=== PATIENT | male | born 1990 | race African-American/Black ===

== ENCOUNTER 2017-06-09 17:33 | Emergency (ER) | payer SELFPAY ==
[~2017-06-09] VITALS: Ht 170.2 cm; Wt 70.0 kg
[2017-06-09 17:57] VITALS: BP 127/77; PULSE 79; RESP 18; TEMP 98.7; O2SAT 97
--- NOTE | 2017-06-09 17:57 | PD ---
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 Allergies-Medications (Allergen,Severity, Reaction): Coded Allergies: No Known Allergies (Unverified , 06/09/17) Reported Meds & Prescriptions Reported Meds & Active Scripts Active No Active Prescriptions or Reported Medications Review of Systems Neurologic: Positive: Other (slow to respond, speak and move after blunt head trauma during football practice) Physical Exam Narrative GENERAL: SKIN: Warm and dry. HEAD: Atraumatic. Normocephalic. EYES: Pupils equal and round. No scleral icterus. No injection or drainage. ENT: No nasal bleeding or discharge. Mucous membranes pink and moist. NECK: Trachea midline. No JVD. ccollar in place CARDIOVASCULAR: Regular rate and rhythm. RESPIRATORY: No accessory muscle use. Clear to auscultation. Breath sounds equal bilaterally. GASTROINTESTINAL: Abdomen soft, non-tender, nondistended. Hepatic and splenic margins not palpable. MUSCULOSKELETAL: Extremities without clubbing, cyanosis, or edema. No obvious deformities. NEUROLOGICAL: Awake and alert....gcs 15/15....(however unable to recall 3 out 5 words, and unable to count backwards by 3's or 7's). Motor grossly within normal limits. Five out of 5 muscle strength in the arms and legs. Normal speech. PSYCHIATRIC: Appropriate mood and affect; insight and judgment normal. Data Data Last Documented VS Vital Signs Date Time Temp Pulse Resp B/P (MAP) Pulse Ox O2 Delivery O2 Flow Rate FiO2 06/09/17 17:57 98.7 79 18 127/77 (94) [address] Brain W/O Iv Contrast(Rout) (06/09/17 17:51) Ct Cerv Spine W/O Contrast (06/09/17 17:51) MDM Medical Decision Making Medical Screen Exam Complete: Yes Emergency Medical Condition: Yes Medical Record Reviewed: Yes Differential Diagnosis ICH V SKULL FX V NECK INJURY V CONCUSSION Narrative Course CT HEAD NEG FOR ICH/SKULL FX AND CT NECK NEG FOR FX/DISLOCATION Diagnosis Primary Impression: Concussion Qualified Codes: S06.0X1A - Concussion with loss of consciousness of 30 minutes or less, initial encounter Patient Instructions: Concussion (ED), General Instructions, Post Concussion Syndrome (ED) Additional Instructions: YOU CAN TAKE TYLENOL FOR HEADACHES, AVOID ALLEVE/MOTRIN/NAPROSYN FOR NOW. PLEASE FOLLOW YOUR TEAM'S CONCUSSION PROTOCOL ON RETURN TO ACTIVITY Scripts Ondansetron Odt (Zofran Odt) 4 Mg Tab 4 MG SL Q6HR Y for Nausea/Vomiting, #30 TAB 0 Refills Prov: Han Ospina MD 06/09/17 Disposition: 01 DISCHARGE HOME Condition: Stable Han Ospina MD Jun 09, 2017 17:57
--- NOTE | 2017-06-09 18:17 | RADRPT ---
EXAM DATE/TIME: 06/09/2017 17:56 [facility] COMPARISON: No previous studies available for comparison. INDICATIONS : Blunt head trauma playing football. Confusion. RADIATION DOSE: 56.35 CTDIvol (mGy) MEDICAL HISTORY : None SURGICAL HISTORY : None. ENCOUNTER: Initial ACUITY: 1 day PAIN SCALE: 0/10 LOCATION: cranial TECHNIQUE: Multiple contiguous axial images were obtained of the head. Using automated exposure control and adj ustment of the mA and/or kV according to patient size, radiation dose was kept as low as reasonably a chievable to obtain optimal diagnostic quality images. DICOM format image data is available electro nically for review and comparison. FINDINGS: CEREBRUM: The ventricles are normal for age. No evidence of midline shift, mass lesion, hemorrhage or acute in farction. No extra-axial fluid collections are seen. POSTERIOR FOSSA: The cerebellum and brainstem are intact. The 4th ventricle is midline. The cerebellopontine angle i s unremarkable. EXTRACRANIAL: The visualized portion of the orbits is intact. SKULL: The calvaria is intact. No evidence of skull fracture. CONCLUSION: Normal noncontrast head CT. Daniele Khan MD on June 09, 2017 at 18:14 Board Certified Radiologist. This report was verified electronically.
--- NOTE | 2017-06-09 18:23 | RADRPT ---
EXAM DATE/TIME: 06/09/2017 17:56 [facility] COMPARISON: No previous studies available for comparison. INDICATIONS : Blunt head trauma playing football. RADIATION DOSE: 34.94 CTDIvol (mGy) MEDICAL HISTORY : None SURGICAL HISTORY : None. ENCOUNTER: Initial ACUITY: 1 day PAIN SCALE: 0/10 LOCATION: neck TECHNIQUE: Volumetric scanning of the cervical spine was performed. Multiplanar reconstructions in the sagittal, coronal and oblique axial planes were performed. Using automated exposure control and adjustment o f the mA and/or kV according to patient size, radiation dose was kept as low as reasonably achievable to obtain optimal diagnostic quality images. DICOM format image data is available electronically f or review and comparison. FINDINGS: VERTEBRAE: Normal vertebral body height. ALIGNMENT: No evidence of subluxation. C2-C3: The bony spinal canal is normal in size. No evidence of disc bulge or herniation. The neural forami na are bilaterally patent. C3-C4: The bony spinal canal is normal in size. No evidence of disc bulge or herniation. The neural forami na are bilaterally patent. C4-C5: The bony spinal canal is normal in size. No evidence of disc bulge or herniation. The neural forami na are bilaterally patent. C5-C6: The bony spinal canal is normal in size. No evidence of disc bulge or herniation. The neural forami na are bilaterally patent. C6-C7: The bony spinal canal is normal in size. No evidence of disc bulge or herniation. The neural forami na are bilaterally patent. C7-T1: The bony spinal canal is normal in size. No evidence of disc bulge or herniation. The neural forami na are bilaterally patent. CONCLUSION: Normal CT of the cervical spine. Daniele Khan MD on June 09, 2017 at 18:20 Board Certified Radiologist. This report was verified electronically.
[2017-06-09] MEDS ORDERED: ZOFR4TAB3 SL (18:40)
== END 2017-06-09 18:55 | disposition home or self-care (01) ==
LOC: NEPD 17:33
DX: S06.0X1A Concussion with loss of consciousness of 30 minutes or less, initial encounter (principal); W51.XXXA Accidental striking against or bumped into by another person, initial encounter; Y93.61 Activity, american tackle football
CPT/HCPCS: 70450; 72125; 99285